=== PATIENT | female | born 1940 | race Caucasian/White ===

== ENCOUNTER 2018-04-27 12:52 | Emergency (ER) | payer OTHER, BC ==
[2018-04-27 13:10] VITALS: PULSE 84; BMI 33.3
--- NOTE | 2018-04-27 13:48 | PDOC ---
History of Present Illness - General Chief Complaint: Injury Stated Complaint: FALL Time Seen by Provider: 04/27/18 13:23 History Source: Patient Exam Limitations: No Limitations - History of Present Illness Initial Comments: 77-year-old female with a history of hypothyroidism, hypertension, hyperlipidemia, CAD s/p cath p/w L lateral leg pain s/p mechanical fall. Patient stated she was going into a [employer] restaurant to order food where she missed a step up to the door and fell on her L lateral side of lower body. She landed first on her L lateral thigh, then lower leg, maybe the pelvis. Patient is unable to recall precisely whether she hit her head. Denies chest pain, shortness of breath, headache, dizziness, vision change, focal weakness. 04/27/18 18:57 Imaging came back negative for fracture or intracranial bleed Patient is able to bear weight, will discharge home with a cane, OTC pain medication for pain relief Past History - Past Medical History Allergies/Adverse Reactions: Allergies Allergy/AdvReac Type Severity Reaction Status Date / Time diazepam [From Valium] Allergy Verified 01/31/15 19:34 Iodinated Contrast- Oral and Allergy Verified 01/31/15 19:34 IV Dye [Iodinated Contrast Media - IV Dye] naproxen sodium [From Aleve] Allergy Verified 01/31/15 19:34 Penicillins Allergy Verified 01/31/15 19:34 Home Medications: Ambulatory Orders Atorvastatin Ca [Lipitor] 20 mg PO HS 02/03/13 Levothyroxine [Synthroid -] 112 mcg PO DAILY 02/03/13 Metoprolol Tartrate [Lopressor -] 12.5 mg PO BID 02/03/13 Acetaminophen W/ Codeine #3 [Tylenol # 3 -] 1 tab PO Q6H PRN #8 tablet 01/31/15 Biotin/Keratin [Biotin Plus Keratin Tablet] 1 each PO DAILY 01/31/15 Doxycycline Hyclate [Vibratab -] 100 mg PO BID #20 tablet 01/31/15 Multivit-Min/Iron/Folic/Lutein [Centrum Silver Women Tablet] 1 each PO DAILY Propylene Glycol/Peg 400/Pf [Systane 0.3-0.4% Eye Drops] 1 each OP DAILY Vit C/E/Zn/Coppr/Lutein/Zeaxan [Preservision Areds 2 Softgel] 1 each PO DAILY Anemia: No Asthma: No Cancer: No Cardiac Disorders: Yes (ASHD) CVA: No COPD: No CHF: No Dementia: No Diabetes: No GI Disorders: Yes (DIVERTICULOSIS; COLON POLYPS;GERD;H/H) Disorders: No HTN: Yes Hypercholesterolemia: Yes Liver Disease: No Seizures: No Thyroid Disease: Yes (HYPO) - Surgical History Abdominal Surgery: Yes (HERNIA) Appendectomy: Yes Cardiac Surgery: (CARDIAC CATH) Cholecystectomy: Yes Lung Surgery: No Neurologic Surgery: No - Immunization History Immunization Up to Date: Yes - Suicide/Smoking/Psychosocial Hx Smoking History: Never smoked Have you smoked in the past 12 months: No If you are a former smoker, when did you quit?: 25YEARS AGO Hx Alcohol Use: No Drug/Substance Use Hx: No Substance Use Type: None Review of Systems - Review of Systems Able to Perform ROS?: Yes Constitutional: No: Chills, Fever Respiratory: No: Cough, Shortness of Breath Cardiac (ROS): No: Chest Pain, Edema Musculoskeletal: Yes: Other (L leg pain) Neurological: Yes: Unsteady Gait (due to pain). No: Numbness, Paresthesia, Tingling, Tremors *Physical Exam - Vital Signs Last Vital Signs Temp Pulse Resp BP Pulse Ox 98.8 F 84 18 158/79 99 04/27/18 13:00 04/27/18 13:00 04/27/18 13:00 04/27/18 13:00 04/27/18 13:00 - Physical Exam Respiratory/Chest: positive: Lungs Clear, Normal Breath Sounds Cardiovascular: positive: Regular Rhythm, Regular Rate, S1, S2. negative: Edema , JVD, Murmur Extremity: positive: Other (limited ROM in L lower extremity due to pain, normal abduction, adduction, sensation intact). negative: Swelling Neurologic: positive: Fully Oriented, Alert Moderate Sedation - Procedure Monitoring Vital Signs: Procedure Monitoring Vital Signs Temperature 98.8 F 04/27/18 13:00 Pulse Rate 84 04/27/18 13:00 Respiratory Rate 18 04/27/18 13:00 Blood Pressure 158/79 04/27/18 13:00 O2 Sat by Pulse Oximetry (%) 99 04/27/18 13:00 *DC/Admit/Observation/Transfer Diagnosis at time of Disposition: Fall Qualifiers: Encounter type: initial encounter Qualified Code(s): W19.XXXA - Unspecified fall, initial encounter - Discharge Dispostion Disposition: HOME Condition at time of disposition: Stable Decision to Admit order: No - Referrals Referrals: Dmitri Plata MD [Primary Care Provider] - - Patient Instructions Printed Discharge Instructions: How to Prevent Falls Additional Instructions: You were seen and evaluated in [facility] ER today after fall. Fracture workup including imaging of your left side of body and head have been negative for fracture or intracranial bleed. You are now stable to be discharged home. Return to the ED if you experience worsening pain. - Post Discharge Activity
[2018-04-27] MEDS ORDERED: traMADol HCL 50 MG TABLET PO ONE (14:02)
[2018-04-27] MEDS ORDERED: traMADol HCL 50 MG TABLET ONE (14:08)
--- NOTE | 2018-04-27 14:25 | PDOC ---
Attending Attestation - Resident Resident Name: Demetris Shaw - ED Attending Attestation I have performed the following: I have examined & evaluated the patient, The case was reviewed & discussed with the resident, I agree w/resident's findings & plan - HPI HPI: 04/27/18 14:22 77-year-old female presents with left leg injury after slip and fall. Patient was entering a [employer] store, slipped on a step and landed on her left leg injuring her knee predominantly. Does not believe she hit her head, denies any lightheadedness/syncope/loss of consciousness. She was assisted to the emergency department, is complaining of isolated pain around her left knee with developing swelling and ecchymosis. Otherwise feeling healthy lately, denies any infectious or dehydration complaints, denies any neurological or cardiopulmonary complaints. - Physicial Exam PE: 04/27/18 14:23 Vital signs stable Well-appearing seated in stretcher, speaking full sentences Head is atraumatic Heart is regular, lungs are clear Abdomen benign Trauma exam is unremarkable except for left lower extremity: There is soft tissue swelling and ecchymosis in the anterior lateral aspect of the proximal lower leg, there is tenderness to the proximal tibia, there is full range of motion of the hip and knee. No ankle tenderness, full range of motion, neurovascularly intact distally. - Medical Decision Making 04/27/18 14:24 77-year-old female with mechanical trip and fall, no red flags to suggest CVA or syncope. Injuries localized to left lower extremity, neurovascularly intact. Left hip/pelvis x-ray, left knee/tib-fib CT had given unclear head injury in elderly patient, not on anti-coagulation Pain control Reassess
[2018-04-27 19:13] VITALS: BP 139/65; TEMP 97.5
== END 2018-04-27 19:13 | disposition home or self-care (01) ==
LOC: JER 12:52
DX: M79.605 Pain in left leg (principal); W10.8XXA Fall (on) (from) other stairs and steps, initial encounter; Y93.89 Activity, other specified; Y92.511 Restaurant or cafe as the place of occurrence of the external cause; Y99.8 Other external cause status; I25.10 Atherosclerotic heart disease of native coronary artery without angina pectoris; I10 Essential (primary) hypertension; E03.9 Hypothyroidism, unspecified; E78.00 Pure hypercholesterolemia, unspecified; Z98.61 Coronary angioplasty status; R26.89 Other abnormalities of gait and mobility
CPT/HCPCS: 70450-TC; 73523-TC-FY; 73560-TC-LT-FY; 73590-TC-LT-FY; 99282-25

== ENCOUNTER 2021-11-01 21:15 | Emergency (ER) | payer OTHER, BC ==
[2021-11-01 21:26] VITALS: BP 137/67; PULSE 89; RESP 18; TEMP 99; BMI 31.6
[2021-11-01 21:48] LABS: EPITHELIAL CELLS FEW /hpf
== END 2021-11-01 21:52 | disposition home or self-care (01) ==
LOC: FER 21:15
DX: R82.998 Other abnormal findings in urine (principal)
CPT/HCPCS: 81003; 81015; 87086; 99283-25